=== PATIENT | female | born 1950 | race Caucasian/White ===

== ENCOUNTER 2021-09-25 15:18 | Emergency (ER) | payer MEDICARE, BC ==
--- NOTE | 2021-09-25 15:22 | ERPHSYRPT ---
- History of Present Illness Time Seen by Provider: 09/25/21 15:22 Source: patient, EMS Exam Limitations: no limitations Physician History: This a 70-year-old white female who lost her footing and fell hitting her head. There is a scalp laceration posteriorly. She did not lose consciousness. Her primary complaint is right knee pain. Patient does see a carbonating stone cleaner, Dr. Perrin. She does have history of coronary artery disease, diabetes, hypertension, peripheral neuropathy, elevated cholesterol and hypothyroidism. She denies chest pain and she denies shortness of breath. Occurred: just prior to arrival Reason for Fall: slipped Injuries/Pain Location: head, lower extremity (Right knee) Loss of Consciousness: no loss of consciousness Severity of Pain-Max: mild Severity of Pain-Current: mild Associated Symptoms (Fall): extremity injury (Right knee anteriorly) Allergies/Adverse Reactions: atorvastatin [From Lipitor] Allergy (Unknown, Verified 09/25/21 15:30) Sulfa (Sulfonamide Antibiotics) Allergy (Unknown, Verified 09/25/21 15:30) Home Medications: Carvedilol 3.125 mg [Coreg 3.125 MG] 3.125 mg PO DAILY 09/25/21 [History] Furosemide 20 mg [Lasix 20 mg] 20 mg PO DAILY 09/25/21 [History] Gabapentin 100 mg [Neurontin 100 MG] 100 mg PO DAILY 09/25/21 [History] Levothyroxine Sodium 25 mcg PO DAILY 09/25/21 [History] Rosuvastatin Calcium 20 mg PO DAILY 09/25/21 [History] Sacubitril/Valsartan [Entresto 24 mg-26 mg Tablet] 1 tab PO DAILY 09/25/21 [History] Travel Risk - International Travel Have you traveled outside of the country in past 3 weeks: No - Coronavirus Screening Are you exhibiting any of the following symptoms?: No Close contact with a COVID-19 positive Pt in past 14-21 Days: No - Review of Systems Constitutional: No Symptoms Eyes: No Symptoms Ears, Nose, & Throat: No Symptoms Respiratory: No Symptoms Cardiac: No Symptoms Abdominal/Gastrointestinal: No Symptoms Genitourinary Symptoms: No Symptoms Musculoskeletal: Injury (Right anterior knee) Skin: Other Neurological: Headache (Laceration) Psychological: No Symptoms Endocrine: No Symptoms Hematologic/Lymphatic: No Symptoms Immunological/Allergic: No Symptoms All Other Systems: Reviewed and Negative - Past Medical History Neurological History: Peripheral Neuropathy Cardiac History: Arrhythmia, Coronary Artery Disease, High Cholesterol, Hypertension, Myocardial Infarction ([place]) Endocrine Medical History: Diabetes Type II, Hypothyroidism Musculoskeletal History: Arthritis, Osteoarthritis Other Medical History: CABG 2014 - Nursing Vital Signs Nursing Vital Signs: Initial Vital Signs Temperature 77.6 F 09/25/21 15:21 Pulse Rate 90 09/25/21 15:21 Respiratory Rate 20 09/25/21 15:21 Blood Pressure 144/53 09/25/21 15:21 O2 Sat by Pulse Oximetry 95 09/25/21 15:21 Pain Scale Pain Intensity 5 - Jazmyn Coma Score Best Eye Response (Mathews): (4) open spontaneously Best Verbal Response (Jazmyn): (5) oriented Best Motor Response (Jazmyn): (6) obeys commands Mathews Total: 15 - Physical Exam General Appearance: no apparent distress, alert, anxiety Head Injury: lacerations Eye Exam: PERRL/EOMI (Posteriorly), eyes nml inspection ENT Exam: airway nml, nml ext.inspection Neck Exam: supple, trachea midline, full range of motion, normal alignment, normal inspection Respiratory/Chest Exam: normal breath sounds, No chest tenderness, No respiratory distress, No ecchymosis, No crepitus Cardiovascular Exam: normal heart sounds, regular rate/rhythm Gastrointestinal Exam: soft, normal bowel sounds, No tenderness Rectal Exam: not done Back Exam: normal inspection, normal range of motion, No CVA tenderness, No vertebral tenderness Extremity Exam: normal range of motion, capillary refill <3 sec, pelvis stable, tenderness (Right anterior knee) Neurologic Exam: alert, oriented x 3, cooperative, certified juvenile probation officer II-XII nml as tested, normal mood/affect, nml cerebellar function, nml station & gait, sensation nml Skin Exam: normal color, warm, dry, laceration (Centimeter nonbleeding lacer ation right posterior scalp. No evidence of foreign body. The wound was examined to the base.) SpO2 Interpretation: normal O2 Delivery: Room Air Procedures - Laceration/Wound Repair Right Posterior Head Time of Procedure: 17:00 Wound Location: Right, head (Posterior occipital region) Wound Length (cm): 2 Wound's Depth, Shape: superficial Wound Explored: clean (No foreign body noted. Examination was performed in a bloodless field to the base) Irrigated: Yes Hibiclens Prep: Yes Wound Repaired With: Hooper (3) Number of Sutures: 3 (3 armen applied) Layer Closure?: No - Course Nursing assessment & vital signs reviewed: Yes EKG Interpreted by Me: RATE (85), Other (No acute ischemic changes. There is no comparison EKG. There is an atrial sensed ventricular paced rhythm with a rate of 85 on today's EKG) Ordered Tests: Active Orders 24 hr Category Date Time Status CERVICAL SPINE WO CONTRAST [CT] Stat Exams 09/25/21 15:50 Completed HEAD WITHOUT CONTRAST [CT] Stat Exams 09/25/21 15:50 Completed KNEE (1 OR 2 VIEW) Stat Exams 09/25/21 15:54 Completed - Progress Progress: improved, pain not gone completely, re-examined Progress Note: 09/25/21 16:53 X-ray of right knee shows chronic changes. In addition there is a nonspecific effusion that is present and small. There is no evidence of any acute fractures or dislocations. CAT scan of the cervical spine without contrast is negative for any acute fracture or subluxation. There are degenerative changes present. CAT scan of the head without contrast shows tiny right posterior scalp laceration. 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 Counseled pt/family regarding: diagnosis, need for follow-up, rad results - Departure Departure Disposition: Home Clinical Impression: Fall with injury, Occipital scalp laceration Condition: Stable Critical Care Time: No Referrals: MARGARETH ROY MD [Primary Care Provider] - Follow up/PCP as directed Additional Instructions: Keep laceration repair site dry for 24 hours. After 24 hours, may wash daily with soap and water. Blot dry use a hairdryer. Staple removal in 8 to 10 days. Use Tylenol and ibuprofen for pain control. May apply an ice pack to area 3 times a day for the next 48 hours for pain control
--- NOTE | 2021-09-25 16:44 | XRAY ---
Indication: Pain following fall. Comparison: None AP/lateral right knee demonstrates osteopenia, moderate/advanced tricompartmental degenerative changes greatest medial compartment, small nonspecific effusion, and extensive scattered vascular calcifications. No other bony, articular, or soft tissue abnormalities.
--- NOTE | 2021-09-25 16:46 | XRAY ---
Indication: Pain following fall. Multiple contiguous axial images obtained through the cervical spine. Sagittal and coronal reformatted images obtained. Comparison: None Age-related osteopenia. Axial images negative for acute fracture, suspicious bony lesions, or spinal canal stenosis. Minimal/mild C3-C7 degenerative endplate spurring. Sagittal and coronal reformatted images demonstrate normal alignment with C4-C6 degenerative disc space narrowing. No acute compression fracture, subluxation, or jumped facet. Normal appearing craniocervical junction. Visualized noncontrasted soft tissues demonstrates mild bilateral carotid calcifications. Impression: 1. Negative acute fracture/subluxation. 2. Osteopenia and multilevel degenerative changes.
--- NOTE | 2021-09-25 16:49 | XRAY ---
Indication: Posterior laceration following fall. Multiple contiguous axial images obtained through the head without contrast. Comparison: None Age-appropriate global atrophy, minimal periventricular degenerative microvascular ischemia bilaterally, and tiny remote lacunar infarct left external capsule. No acute intracranial hemorrhage, abnormal extra-axial fluid collection, or mass effect. Fourth ventricle is midline without hydrocephalus. Tiny right posterior occipital scalp laceration. Bony calvarium intact. Visualized paranasal sinuses and mastoid air cells are clear. Impression: Tiny right posterior scalp laceration. Nonacute senile brain with remote lacunar infarct left external capsule.
[2021-09-25 17:27] VITALS: BP 126/62; PULSE 84; O2SAT 96
== END 2021-09-25 17:42 | disposition home or self-care (01) ==
LOC: ED 15:18
DX: S01.01XA Laceration without foreign body of scalp, initial encounter (principal); M25.561 Pain in right knee; W01.0XXA Fall on same level from slipping, tripping and stumbling without subsequent striking against object, initial encounter; E78.5 Hyperlipidemia, unspecified; I10 Essential (primary) hypertension; E11.8 Type 2 diabetes mellitus with unspecified complications
CPT/HCPCS: 12001; 70450; 72125; 73560; 99284

== ENCOUNTER 2022-06-29 21:38 | Emergency (ER) | payer MEDICARE, BC ==
[2022-06-29] MEDS ORDERED: EPINEPHRINE ABBOJECT 1 MG IV ONE ×10 (21:41→22:33)
[2022-06-29] MEDS ORDERED: Sodium Chloride 0.9% 1000 ML 1,000 ML ONE (21:45)
[2022-06-29] MEDS ORDERED: SODIUM BICARBONATE 50 MEQ/50 ML ABBOJECT IV ONE ×2 (21:46→22:17)
[2022-06-29] MEDS ORDERED: Sodium Chloride 0.9% 1000 ML 1,000 ML IV SCH (22:15)
[2022-06-29 22:20] LABS: Hematocrit 36.9 % (35-47); Hemoglobin 10.2 g/dL (12.0-16.0); Mean Cell Volume 101.7 fL (78-100); Mean Corpuscular Hemoglobin 28.1 pg (26-32); Mean Corpuscular Hgb Concent. 27.6 g/dL (32-36); Mean Platelet Volume 9.8 fL (7.5-11.0); Platelet Count 215 x10^3/uL (150-450); Red Blood Count 3.63 x10^6/uL (4.1-5.4); Red Cell Distribution Width 13.4 % (11.5-14.0); White Blood Count 8.4 x10^3/uL (4.0-10.5)
[2022-06-29 22:42] LABS: ANION GAP 33.5 MEQ/L (5-15); BILIRUBIN,TOTAL 0.2 mg/dL (0.2-1.3); Calcium 8.2 mg/dL (8.4-10.2); Creatinine 1 1.29 mg/dL (0.52-1.04); EST GLOMERULAR FILTRATION RATE 43.1 ML/MIN; MAGNESIUM 2.1 mg/dL (1.6-2.3); Potassium 5.2 mmol/L (3.5-5.1); Total Protein 5.1 g/dL (6.3-8.2)
--- NOTE | 2022-06-29 22:57 | ERPHSYRPT ---
- History of Present Illness Time Seen by Provider: 06/29/22 21:40 Source: EMS Exam Limitations: clinical condition Patient Subjective Stated Complaint: ems was called to pt's house for shortness of breath, pt was restless, diaphoretic, and short of breath. sister with pt, reports that she thinks pt is having a diabetic episode and has been vomiting today. Triage Nursing Assessment: pt arrive per ambulance, pt being bagged on arrival. pulse lost and cpr started. pt unresponsive. mottling noted. Physician History: This is a morbidly obese 71-year-old white female patient who is diabetic and has a history of coronary artery disease status post three-vessel CABG and 2015 and cardiac pacemaker in place. Patient presents via EMS who were "bagging" her to help her ventilate. Patient arrived not intubated, pupils were fixed and dilated and there is no spontaneous pulse or breath sounds. The rhythm on the monitor was PEA. Patient also was noted to have bilateral leg mottling. She was unresponsive. Later, history was obtained that she was not feeling well. She lives with her sister and her sister stated that patient contacted her primary care doctor who felt that the patient might have a sinus infection and prescribed Ceftin for this. Patient took her medication. Patient was feeling more weak and tired and laid down. She had multiple episodes of vomiting per patient's sister. Patient's sister stated that she did not complain of any back pain or chest pain only weakness and then having the episodes of vomiting and shortness of breath. Sister also states that her room air oxygenation level at home was 75% during the day today Timing/Duration: today Severity of Pain-Max: none Severity of Pain-Current: none Nitro Today/Relief: no nitro taken today Aspirin Treatment Today: no aspirin today Associated Symptoms: shortness of breath, diaphoresis, cough, No chest pain Allergies/Adverse Reactions: atorvastatin [From Lipitor] Allergy (Unknown, Verified 09/25/21 15:30) Sulfa (Sulfonamide Antibiotics) Allergy (Unknown, Verified 09/25/21 15:30) Home Medications: Carvedilol 3.125 mg [Coreg 3.125 MG] 3.125 mg PO DAILY 09/25/21 [History] Furosemide 20 mg [Lasix 20 mg] 20 mg PO DAILY 09/25/21 [History] Gabapentin [Neurontin 100 MG] 100 mg PO DAILY 09/25/21 [History] Levothyroxine Sodium 25 mcg PO DAILY 09/25/21 [History] Rosuvastatin Calcium 20 mg PO DAILY 09/25/21 [History] Sacubitril/Valsartan [Entresto 24 mg-26 mg Tablet] 1 tab PO DAILY 09/25/21 [History] Hx Tetanus, Diphtheria Vaccination/Date Given: Yes Hx Influenza Vaccination/Date Given: No Hx Pneumococcal Vaccination/Date Given: No Travel Risk - International Travel Have you traveled outside of the country in past 3 weeks: No - Vaccine Status Have you recieved a Covid-19 vaccination: Yes Ballpoint Pens Assembler: Moderna - Vaccination Dates Date of 2cond Vaccination (if applicable): 03/2021 Comment: and a booster - Review of Systems Constitutional: Other (Unresponsive) Eyes: No Symptoms, Other (Patient unresponsive) Ears, Nose, & Throat: No Symptoms Respiratory: No Symptoms, Other (No spontaneous breath sounds) Cardiac: No Symptoms, Other (No spontaneous heartbeat or palpable pulses) Abdominal/Gastrointestinal: No Symptoms, Other (Patient unresponsive) Genitourinary Symptoms: No Symptoms, Other (Patient unresponsive) Musculoskeletal: No Symptoms (Nonresponsive) Skin: No Symptoms Neurological: Other (Unresponsive) Psychological: No Symptoms Endocrine: No Symptoms Hematologic/Lymphatic: No Symptoms Immunological/Allergic: No Symptoms All Other Systems: Reviewed and Negative, Unable due to condition - Past Medical History Pertinent Past Medical History: Yes Neurological History: Peripheral Neuropathy Cardiac History: Arrhythmia, Coronary Artery Disease, High Cholesterol, Hypertension, Myocardial Infarction ([place]) Respiratory History: No Pertinent History Endocrine Medical History: Diabetes Type II, Hypothyroidism Musculoskeletal History: Arthritis, Osteoarthritis Other Medical History: CABG 2014 - Past Surgical History Past Surgical History: Yes Other Surgical History: triple bypass. ablasion. pacemaker - Social History Smoking Status: Former smoker Exposure to second hand smoke: Yes Drug Use: none Patient Lives Alone: No - Nursing Vital Signs Nursing Vital Signs: Pain Scale Pain Intensity 0 - Physical Exam General Appearance: obese, other (Responsive) Eye Exam: other (Pupils fixed and dilated) Ears, Nose, Throat Exam: dry mucous membranes Neck Exam: normal inspection, non-tender, supple, full range of motion Respiratory Exam: other (No spontaneous breath sounds) Cardiovascular Exam: other (No spontaneous heart tones. No palpable pulses. Monitor shows PEA) Gastrointestinal/Abdomen Exam: soft Pelvic Exam: not done Rectal Exam: not done Extremity Exam: other (Mottling of bilateral lower extremities) Neurologic Exam: other (Patient unresponsive) Skin Exam: mottled Lymphatic Exam: No adenopathy SpO2 Interpretation: hypoxic Procedures - Intubation Intubation Method: curved blade, glidescope Tube Size (cm): 7.0 C-Spine: maintained Endotracheal Tube Confirmation: bilateral breath sounds Performed By: It Security Administrator Post Intubation Xray: No Progress/X-ray Impression: 06/29/22 23:00 Initial 2 attempts was by the respiratory therapy these were unsuccessful. Therefore, the medical billing service performed in the intubation with a 7.0 ET tube using a curved blade glide scope. After intubation, the ET tube copious amount of pink frothy fluid. 06/29/22 23:01 - Course Nursing assessment & vital signs reviewed: Yes EKG Interpreted by Me: RATE, Other (This was the first possibility of obtaining an EKG when we briefly had a return of pulse. It appears to be a paced rhythm. At 80 bpm) Ordered Tests: Active Orders 24 hr Category Date Time Status EKG-ER Only STAT Care 06/29/22 22:12 Active IV Insertion STAT Care 06/29/22 22:12 Active Pulse Oximetry (ED) STAT Care 06/29/22 22:12 Active CHEST 1 VIEW (PORTABLE) Stat Exams 06/29/22 22:12 Ordered CBC W DIFF Stat Lab 06/29/22 22:17 Completed CMP Stat Lab 06/29/22 22:17 Completed MAGNESIUM Stat Lab 06/29/22 22:17 Completed Manual Differential NC Stat Lab 06/29/22 22:17 Completed NT PRO BNP Stat Lab 06/29/22 22:17 Completed TROPONIN Q4H Lab 06/29/22 22:17 Completed TROPONIN Q4H Lab 06/30/22 02:15 Ordered TROPONIN Q4H Lab 06/30/22 06:15 Ordered UA W/RFX CULTURE Stat Lab 06/29/22 Ordered Medication Summary Generic Name Dose Route Start Last Admin Trade Name Freq PRN Reason Stop Dose Admin Sodium Chloride 1,000 mls @ 100 mls/hr 06/29/22 22:15 Sodium Chloride 0.9% 1000 Ml IV 07/29/22 22:14 .Q10H SARBJIT Discontinued Medications Generic Name Dose Route Start Last Admin Trade Name Freq PRN Reason Stop Dose Admin Sodium Chloride Confirm 06/29/22 21:45 Sodium Chloride 0.9% 1000 Ml Administered 06/29/22 21:46 Dose 1,000 mls @ .ROUTE .[facility] Lab/Rad Data: Laboratory Result Diagrams 06/29/22 22:17 06/29/22 22:17 Laboratory Results 06/29/22 06/29/22 06/29/22 Range/Units 22:17 22:17 22:17 WBC 8.4 (4.0-10.5) x10^3/uL RBC 3.63 L (4.1-5.4) x10^6/uL Hgb 10.2 L (12.0-16.0) g/dL Hct 36.9 (35-47) % MCV 101.7 H (78-100) fL MCH 28.1 (26-32) pg MCHC 27.6 L (32-36) g/dL RDW 13.4 (11.5-14.0) % Plt Count 215 (150-450) x10^3/uL MPV 9.8 (7.5-11.0) fL Sodium 145 (137-145) mmol/L Potassium 5.2 H (3.5-5.1) mmol/L Chloride 109 H (98-107) mmol/L Carbon Dioxide 8 L* (22-30) mmol/L Anion Gap 33.5 H (5-15) MEQ/L BUN 20 H (7-17) mg/dL Creatinine 1.29 H (0.52-1.04) mg/dL Estimated GFR 43.1 ML/MIN Glucose 548 H* (74-106) mg/dL Calcium 8.2 L (8.4-10.2) mg/dL Magnesium 2.1 (1.6-2.3) mg/dL Total Bilirubin 0.20 (0.2-1.3) mg/dL AST 44 H (14-36) U/L ALT 28 (0-35) U/L Alkaline Phosphatase 70 (38-126) U/L Troponin I 0.056 H* (0.000-0.034) ng/mL NT-Pro-B Natriuret Pep 1440 H (0-900) pg/mL Serum Total Protein 5.1 L (6.3-8.2) g/dL Albumin 3.0 L (3.5-5.0) g/dL - Progress Progress: unchanged Air Movement: poor Progress Note: 06/29/22 23:03 The second brief return of palpable pulse prompted the second EKG which shows A. fib a flutter with a heart rate of 122 and paced complexes. There is a left bundle branch block. The time of this twelve-lead EKG is 2221 Third brief return of palpable pulse prompted the third EKG at 2225 which is a ventricular paced rhythm at 107 bpm. Fourth and final brief return of palpable pulse prompted a fourth twelve-lead EKG which shows a 99 ventricular paced rhythm. This was performed at 2226. Before in between each of these twelve-lead EKGs we lost a palpable pulse. Medical decision making: After 40 minutes of CPR being ineffective, I spoke with the patient's sister and granddaughter who is a nurse. I explained to them what we had done so far and that we would continue for a time but nothing after 40 minutes has changed in this patient. See the CPR sheet. Ultimately, the family opted to stop all code arrest processes. The code process was called at 2249. The patient's sister and granddaughter were in the room at that time. Blood Culture(s) Obtained: No Antibiotics given: No Counseled pt/family regarding: lab results, diagnosis - Departure Departure Disposition: Clinical Impression: PEA (Pulseless electrical activity), Pulmonary edema, V-tach Condition: Critical Care Time: Yes Critical Care Time(excluding separately billable procedures): Critical 30-74 mins (45 minutes) Referrals: MARGARETH ROY MD [Primary Care Provider] - Follow up/PCP as directed
== END 2022-06-29 22:49 | disposition expired ==
LOC: ED 21:38
DX: I46.9 Cardiac arrest, cause unspecified (principal); I50.1 Left ventricular failure, unspecified; I47.2 Ventricular tachycardia; E78.5 Hyperlipidemia, unspecified; I10 Essential (primary) hypertension; E11.42 Type 2 diabetes mellitus with diabetic polyneuropathy
CPT/HCPCS: 31500; 36000; 36415; 51702; 80053; 82947; 83735; 83880; 84484; 85025; 93005; 94002; 94799; 96360; 96374; 96376; 99284; 99291; J0171